=== PATIENT | female | born 1960 | race Caucasian/White ===

== ENCOUNTER 2022-03-15 00:29 | Day surgery (SDC) | payer OTHER, SELFPAY ==
[2022-03-08 12:37] VITALS: BMI 46.5
--- NOTE | 2022-03-12 16:38 | PM.HPGS ---
History of Present Illness History of Present Illness Consent: Risks, benefits, and alternatives have been discussed and questions answered. Patient agrees to proceed with procedure. Chief complaint: neoplasm screening Narrative: Neda Terrell is a 61 year old female referred for colon cancer screening. Her brother from colon cancer at age 32. Another brother has had polyps Review of Systems Review of Systems: All systems reviewed & are unremarkable except as noted in HPI and below PMFSH Social History Social History Smoking status: Never smoker Alcohol intake: current Alcohol use details: socially Substance use: current Substance use type: marijuana Living arrangements: with family Spiritual care concerns: No Meds Home Medications and Allergies Home Medications Medication Instructions Recorded Confirmed Type Vitamin D3 1 tab-cap PO DAILY 03/08/22 03/08/22 History paroxetine HCl 10 mg tablet 10 mg PO DAILY 03/08/22 03/08/22 History spironolactone 100 mg tablet 100 mg PO DAILY 03/08/22 03/08/22 History Allergies Allergy/AdvReac Type Severity Reaction Status Date / Time Penicillins Allergy Mild Unknown Verified 03/15/22 09:29 Exam Const: General: alert Nutritional Appearance: overweight Orientation/consciousness: patient oriented x3 Resp: Auscultation: clear to auscultation bilaterally Cardio: Rhythm: regular rhythm GI: GI Palp: Yes Soft to palpation and No Tenderness to palpation present (GI) Neuro: General: patient oriented x3 Assessment and Plan Assessment and plan (1) Colon cancer screening: Code(s): Z12.11 - Encounter for screening for malignant neoplasm of colon Status: Acute Assessment and Plan: Colonoscopy with possible biopsy or polypectomy or cautery or injection of substances.
[2022-03-15 09:29] VITALS: BP 152/89; PULSE 72; RESP 18; TEMP 36.2; O2SAT 98; BMI 44.2
[2022-03-15] MEDS: LACTATED RINGERS 1,000 ML 150 ML IV CONT (09:40)
--- NOTE | 2022-03-15 10:21 | P.PNAN_ITS ---
Anes - Initial Pre Proc Eval Procedure: Operation Date: 03/15/22 11:00 Proposed Procedures p Screening Colonoscopy - Colten Carrizales MD Date/Time: 03/15/22 10:21 Surgeon: Colten Carrizales MD Pre Op Diagnosis: neoplasm screening Patient Data Age: 61 Gender: F Height: 1.63 m Weight: 116.9 kg Last Vital Signs Temp 97.1 F L 03/15/22 09:29 Pulse 72 03/15/22 09:29 Resp 18 03/15/22 09:29 BP 152/89 H 03/15/22 09:29 Pulse Ox 98 03/15/22 09:29 O2 Del Method Room Air 03/15/22 09:29 Allergies Allergy/AdvReac Type Severity Reaction Status Date / Time Penicillins Allergy Mild Unknown Verified 03/15/22 09:29 Home Medications Medication Instructions Recorded Confirmed Type Vitamin D3 1 tab-cap PO DAILY 03/08/22 03/08/22 History paroxetine HCl 10 mg tablet 10 mg PO DAILY 03/08/22 03/08/22 History spironolactone 100 mg tablet 100 mg PO DAILY 03/08/22 03/08/22 History Patient hx anesthesia problems: none Family hx anesthesia problems: none Results Review: All pre-operative results and documents have been reviewed as part of the pre- operative evaluation. [facility] Social History Social History Smoking status: Never smoker Alcohol intake: current Alcohol use details: socially Substance use: current Substance use type: marijuana Living arrangements: with family Spiritual care concerns: No Anes - Eval Final PreProcedure Day of Procedure 03/15/22 10:21 Patient weight: morbidly obese Heart: regular rate and rhythm Lungs: clear to auscultation Airway: Mallampati scale class III Neurological: alert and oriented Last oral intake: >/= 8 hours ASA classification: III Emergent: no Anesthetic plan: proceed Anesthesia type and monitoring: general GIVS and standard monitoring Results Review: All pre-operative results and documents have been reviewed as part of the pre- operative evaluation. Informed Consent: The patient's anesthetic plan and its attendant risks and benefits were discussed with the patient/family/POA. Questions were solicited and answers provided to the satisfaction of the patient/family/POA.
[2022-03-15 11:10] VITALS: BP 114/63; PULSE 81; RESP 32; O2SAT 98
[2022-03-15 11:20] VITALS: BP 128/87; PULSE 67; RESP 32; O2SAT 95
[2022-03-15 11:30] VITALS: BP 133/82; PULSE 62; RESP 21; O2SAT 95
== END 2022-03-15 11:42 | disposition home or self-care (01) ==
PROVIDERS: PCP Internal Medicine; Visit Provider Internal Medicine Gastroenterology
PROC: 0DJD8ZZ Inspection of Lower Intestinal Tract, Via Natural or Artificial Opening Endoscopic (ICD-10-PCS; CPT 45378; principal; 2022-03-15 11:00)
DX: Z12.11 Encounter for screening for malignant neoplasm of colon (principal); D12.2 Benign neoplasm of ascending colon; D12.8 Benign neoplasm of rectum; D12.3 Benign neoplasm of transverse colon; Z80.0 Family history of malignant neoplasm of digestive organs; F12.90 Cannabis use, unspecified, uncomplicated; E66.01 Morbid (severe) obesity due to excess calories; Z68.41 Body mass index [BMI] 40.0-44.9, adult
CPT/HCPCS: 45381; 45385; 88305; J2704; J7120

== ENCOUNTER 2022-12-17 00:26 | Day surgery (SDC) | payer OTHER, SELFPAY ==
[2022-12-13 15:44] VITALS: BMI 42.3
--- NOTE | 2022-12-16 15:56 | PM.HPGS ---
History of Present Illness History of Present Illness Consent: Risks, benefits, and alternatives have been discussed and questions answered. Patient agrees to proceed with procedure. Chief complaint: hx colon polyps Narrative: Neda Terrell is a 62 year old female With a family history of colon cancer, her brother at age 33 develop colon cancer. She also had 2 very large polyps removed last year 1 in the rectum and 1 in the ascending colon, each about 3 cm in diameter. Because of piecemeal removal of large polyps she returns for surveillance to ensure complete removal of those polyps and/or treatment of any recurrent neoplastic tissue. Review of Systems Review of Systems: All systems reviewed & are unremarkable except as noted in HPI and below PMFSH Surgical History Surgical History History of hysterectomy History of laparoscopic adjustable gastric banding 2011 Social History Social History Smoking status: Never smoker Alcohol intake: current Alcohol use details: rarely Substance use: current Substance use type: does not use Living arrangements: with family Spiritual care concerns: No Meds Home Medications and Allergies Home Medications Medication Instructions Recorded Confirmed Type Vitamin D3 1 tab-cap PO DAILY 03/08/22 12/17/22 History paroxetine HCl 10 mg tablet 10 mg PO DAILY 03/08/22 12/17/22 History spironolactone 100 mg tablet 100 mg PO DAILY 03/08/22 12/17/22 History Allergies Allergy/AdvReac Type Severity Reaction Status Date / Time Penicillins Allergy Mild Unknown Verified 12/17/22 09:42 Exam Const: General: alert Orientation/consciousness: patient oriented x3 Resp: Auscultation: clear to auscultation bilaterally Cardio: Rhythm: regular rhythm GI: GI Palp: Yes Soft to palpation and No Tenderness to palpation present (GI) Neuro: General: patient oriented x3 Assessment and Plan Assessment and plan (1) Personal history of colonic polyps: Code(s): Z86.010 - Personal history of colonic polyps Status: Acute Assessment and Plan: Colonoscopy with possible biopsy or polypectomy or cautery or injection of substances.
--- NOTE | 2022-12-17 08:02 | WPDANESEPPF ---
Anes - Initial Pre Proc Eval Procedure: Operation Date: 12/17/22 11:00 Proposed Procedures p Colonoscopy - Colten Carrizales MD Date/Time: 12/17/22 08:02 Surgeon: Colten Carrizales MD Pre Op Diagnosis: hx colon polyps Patient Data Age: 62 Gender: F Height: 1.63 m Weight: 112 kg Allergies Allergy/AdvReac Type Severity Reaction Status Date / Time Penicillins Allergy Mild Unknown Verified 12/17/22 09:42 Home Medications Medication Instructions Recorded Confirmed Type Vitamin D3 1 tab-cap PO DAILY 03/08/22 12/17/22 History paroxetine HCl 10 mg tablet 10 mg PO DAILY 03/08/22 12/17/22 History spironolactone 100 mg tablet 100 mg PO DAILY 03/08/22 12/17/22 History Patient hx anesthesia problems: none Family hx anesthesia problems: none Results Review: All pre-operative results and documents have been reviewed as part of the pre-operative evaluation. [facility], [facility] Surgical History Surgical History (Updated 12/17/22 @ 08:03 by Christopher Jiang DO) History of hysterectomy History of laparoscopic adjustable gastric banding 2011 Social History Social History Smoking status: Never smoker Alcohol intake: current Alcohol use details: rarely Substance use: current Substance use type: does not use Living arrangements: with family Spiritual care concerns: No Anes - Eval Final PreProcedure Day of Procedure 12/17/22 08:02 Patient weight: morbidly obese Heart: regular rate and rhythm Lungs: clear to auscultation Airway: Mallampati scale class II Neurological: alert and oriented Last oral intake: >/= 8 hours ASA classification: III Emergent: no Anesthetic plan: proceed Anesthesia type and monitoring: general GIVS and standard monitoring Results Review: All pre-operative results and documents have been reviewed as part of the pre-operative evaluation. Informed Consent: The patient's anesthetic plan and its attendant risks and benefits were discussed with the patient/family/POA. Questions were solicited and answers provided to the satisfaction of the patient/family/POA.
[2022-12-17 09:43] VITALS: BP 138/92; PULSE 76; RESP 20; TEMP 35.8; O2SAT 98; BMI 42.8
[2022-12-17] MEDS: LACTATED RINGERS 1,000 ML 150 ML IV CONT (09:53)
[2022-12-17] MEDS: SIMETHICONE ORAL SUSPENSION 20 MG/0.3 ML 30 ML BOTTLE 0.6 ML IRRIGATION (10:59)
[2022-12-17 11:09] VITALS: BP 91/55; PULSE 68; RESP 20; O2SAT 95
[2022-12-17 11:19] VITALS: BP 133/84; PULSE 64; RESP 22; O2SAT 98
[2022-12-17 11:29] VITALS: BP 132/89; PULSE 65; RESP 19; O2SAT 98
== END 2022-12-17 11:47 | disposition home or self-care (01) ==
PROVIDERS: PCP Internal Medicine; Visit Provider Internal Medicine Gastroenterology
PROC: 0DJD8ZZ Inspection of Lower Intestinal Tract, Via Natural or Artificial Opening Endoscopic (ICD-10-PCS; CPT 45378; principal; 2022-12-17 11:00)
DX: Z09 Encounter for follow-up examination after completed treatment for conditions other than malignant neoplasm (principal); D12.8 Benign neoplasm of rectum; K64.8 Other hemorrhoids; Z98.84 Bariatric surgery status; E66.01 Morbid (severe) obesity due to excess calories; Z68.41 Body mass index [BMI] 40.0-44.9, adult; Z80.0 Family history of malignant neoplasm of digestive organs
CPT/HCPCS: 45385; 88305; J2704; J7120

== ENCOUNTER 2023-06-15 11:33 | Outpatient (CLI) | payer OTHER, SELFPAY ==
--- NOTE | ~2023-06-15 | MM_ITS ---
EXAMINATION: MM screening roberto BI w shar HISTORY: Screening mammogram TECHNIQUE: Craniocaudal and mediolateral oblique 3-D tomosynthesis images were obtained and synthetic 2-D images were generated. CAD analysis was submitted and interpreted. COMPARISON: 08/04/2018 bilateral screening mammogram BREAST PARENCHYMAL COMPOSITION: There are scattered areas of fibroglandular density. FINDINGS: There is no evidence of suspicious mass, calcification, or architectural distortion to sugg est malignancy in either breast. There has been no suspicious interval change. IMPRESSION: 1. No mammographic evidence of malignancy. 2. Recommend routine screening mammography in one year. BI-RADS Category 1: Negative Reviewed, dictated and finalized at location A.
== END 2023-06-15 11:34 ==
LOC: MICIMG 11:35
PROVIDERS: PCP Obstetrics & Gynecology Gynecology; Visit Provider Obstetrics & Gynecology Gynecology
DX: Z12.31 Encounter for screening mammogram for malignant neoplasm of breast (principal)
CPT/HCPCS: 77063; 77067

== ENCOUNTER 2025-02-19 17:37 | Emergency (ER) | payer OTHER, SELFPAY ==
[2025-02-19 17:48] VITALS: BP 134/85; PULSE 97; RESP 18; TEMP 36.7; O2SAT 97
[2025-02-19 18:04] LABS: EDUAAPPEAR Cloudy; EDUABILI Negative (Negative); EDUABLOOD Negative (Negative); EDUACOLOR1 Yellow; EDUAGLUCOSE Negative (Negative); EDUAKETONE Negative (Negative); EDUALEUKO Negative (Negative); EDUANITRATE Positive (Negative); EDUAPH 7.5; EDUAPROTEIN 1+ (Negative); EDUASPGRAVITY 1.020; EDUAUROBILI 0.2
--- NOTE | 2025-02-19 18:09 | ED.FEMALEGU ---
HPI - Female Genitourinary General Chief complaint: Urogenital-Female Stated complaint: Urinary Problem Time Seen by Provider: 02/19/25 18:00 Source: patient, RN notes reviewed and old records reviewed Mode of arrival: ambulatory Limitations: no limitations History of Present Illness HPI Narrative: 64 year old female who presents to [facility] care with complaints of chills, nausea, increased urgency foul-smelling odorous urine and burning with urination for the past 4 weeks. Patient reports she has had 4 incidents of urinary tract infections this year. Patient states she seen her biostatistics teacher 2 months ago and did receive prescriptions for estrogen vaginal cream and just started this week and also started probiotic. Patient reports that she has some episodes of stress incontinency like with coughing or sneezing. Patient reports that she has seen uroogy also in the past. MD elicited complaint: UTI Pertinent past history: recurrent UTIs Onset (ago): week(s) (4) Location of symptoms: urethra Severity: moderate Vaginal discharge: none Vaginal bleeding: none Urinary symptoms: Dysuria, Urgency, Frequency and Foul Smelling Urine Treatment prior to arrival: other (probiotic and started vaginal estrogen ccream) Related Data Home Medications ?Medication ?Instructions ?Recorded ?Confirmed ?Last Taken ?Type tirzepatide 7.5 mg/0.5 mL mg subcut 02/19/25 Unknown History subcutaneous pen injector (Mounjaro) Allergies Allergy/AdvReac Type Severity Reaction Status Date / Time Penicillins Allergy Mild Unknown Verified 02/19/25 17:49 Review of Systems Review of Systems: CONSTITUTIONAL: Denies fever,+ chills, or sweats. CARDIOVASCULAR: Denies chest pain, palpitations, or edema. RESPIRATORY: Denies cough or dyspnea. GASTROINTESTINAL: Denies abdominal pain,+ nausea, no vomiting, or diarrhea. GENITOURINARY: Reports dysuria, frequency, urgency.,foul smelling urine Denies flank pain or hematuria. SKIN: Denies rash or itching. MUSCULOSKELETAL: Denies back pain or myalgia. Denies CVA tenderness NEUROLOGIC: Denies headache All systems reviewed & are unremarkable except as noted in HPI and below PMFSH Past Medical History Medical History (Updated 02/20/25 @ 12:29 by Felicity Couch APRN) Personal history of colonic polyps Diabetes Urinary tract infection Surgical History Surgical History History of hysterectomy History of laparoscopic adjustable gastric banding 2011 Social History Social History Smoking status: Never smoker Alcohol intake: current Alcohol use details: rarely Substance use: current Substance use type: does not use Living arrangements: with family Spiritual care concerns: No Comments At time of signature, agree with nursing past medical, surgical, social and family history. There is no relevant family history pertinent to the presenting complaint Exam Narrative: GENERAL: Well-appearing, well-nourished, and in no acute distress. HEAD: Normocephalic, atraumatic. NECK: Supple.no lymphadenopathy CHEST: Clear to auscultation. No respiratory distress.no cough noted SAO2 97% on room air HEART: Regular rate and rhythm. No murmur heard. Normal peripheral pulses. ABDOMEN: Soft, nontender, nondistended, normal active bowel sounds. No CVA tenderness, reports frequency,urgency burning with urination with foul odorous urine EXTREMITIES: Normal range of motion. No edema. SKIN: Warm, dry, no rash. NEURO: No focal deficits. Alert and oriented x3. Course Course Emergency Course: Patient is aware of diagnosis, understands and agrees to treatment plan.? Anticipatory guidance given.? Patient agrees to follow-up as directed and is aware of reasons to seek care at the emergency department. Portions of this record may have been created with voice recognition software Level of Care: Express Care Visit Vital Signs Vital signs: Vital Signs Temperature 36.7 C 02/19/25 17:48 Pulse Rate 97 02/19/25 17:48 Respiratory Rate 18 02/19/25 17:48 Blood Pressure 134/85 02/19/25 17:48 Pulse Oximetry 97 02/19/25 17:48 Oxygen Delivery Room Air 02/19/25 17:48 Temperature 36.7 C 02/19/25 17:48 Pulse Rate 97 02/19/25 17:48 Respiratory Rate 18 02/19/25 17:48 Blood Pressure 134/85 02/19/25 17:48 Pulse Oximetry 97 02/19/25 17:48 Oxygen Delivery Room Air 02/19/25 17:48 reviewed MDM - Female Genitourinary MDM Narrative Medical decision making narrative: Exam findings and UA show no acute concerns or changes; patient is non-toxic appearing and is in no distress.? Patient is appropriate for outpatient treatment and follow-up. Differential Diagnosis Differential diagnosis: Likely urinary tract infection, cystitis and other (dysuria,) Medical Records Attestation: I reviewed the patient's medical records. Lab Data Attestation: I reviewed the patient's lab results. Lab results narrative: urine dip : glucose negative bilirubin negative, ketones negative, specific gravity 1.020, blood negative, pH 7.5, protein 1+ urobilinogen 0.2 protein1+, nitrite positive. leukocyte negativeyellow cloudy and foul odor Labs: Lab Results 02/19/25 Range/Units 18:01 POC Urine Color Yellow POC Urine Clarity Cloudy POC Urine pH 7.5 POC Ur Specif [place] 1.020 POC Urine Protein 1+ (Negative) POC Ur Glucose (UA) Negative (Negative) POC Urine Ketones Negative (Negative) POC Urine Blood Negative (Negative) POC Urine Nitrite Positive (Negative) POC Urine Bilirubin Negative (Negative) POC Urine Urobilinogen 0.2 POC U Leukocyte Esteras Negative (Negative) reviewed Critical Care Time Critical Care Time Critical Care Time: No Discharge Plan Discharge Clinical Impression: Urinary tract infection Qualifiers: Urinary tract infection type: site unspecified Hematuria presence: without hematuria Qualified Code(s): N39.0 - Urinary tract infection, site not specified Patient Disposition: Home Condition: Stable Instructions: Antibiotic Form, Urinary Tract Infection in Women (ED) Additional Instructions: Increase fluids especially cranberry juice and water Avoid caffeine and carbonated beverages Antibiotic as directed take all doses of antibiotics Tylenol/ibuprofen for pain or fever Follow-up with her primary care provider if further problems or concerns Recheck if you have fever over 101, nausea and vomiting. urine culture sent for further analysis If your symptoms persist, change or worsen significantly before you can contact your personal physician then please, without delay, go to the emergency department for further evaluation. Follow-up with PCP in 7-10 days or sooner if needed Follow up with PCP soon in regards to your blood pressure which is elevated above threshold for referral. Blood pressure above 120/80 may indicate pre-hypertension. 134/85 Patient Language: Montenegrin Prescriptions: New ciprofloxacin HCl 500 mg tablet 500 mg PO Q12H Qty: 14 0RF No Action Mounjaro 7.5 mg/0.5 mL pen injector SUBCUT Follow-up/Referrals: Camilo Hawkins MD [Primary Care Provider, Internal Medicine] Time of Disposition: 18:25 Quality [place] Coma Scale Eyes: Open Verbal: Oriented and Alert Motor: Follows Commands [place] Coma Total Score: 15
--- OUTSIDE RECORDS SUMMARY | 2025-02-20 04:13 | XMS_ITS | Clinical Summary ---
Author Organization [facility] Address [address] [place] [address] Care Team Providers Care Nozzle Worker Name Role Phone Unavailable Primary Care Provider Unavailabl e Source Comments [facility],non-owned Affiliates and Associated Physician Practices is amultiple site organization consisting of ambulatory clinics and hospital sitesin [place], [place], [place] and [place]. This disclosure is being madepursuant to the Care Everywhere program and may not contain all information available regarding this patient. 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 Gender Identity Not on file Sexual Orientation Not on file Plan of Treatment Health Maintenance Due Date Last Done Comments COLOGUARD (AGES 45-75) - COL ON CA SCREENING 1961 COLON MONITORING 1961 COLONOSCOPY - COLON CA SCREENING 1961 CT COLONOGRAPHY - COLON CA SCREENING 1961 Colorectal Cancer Screening 1961 FIT - COLON CA SCREENING 1961 FLEX SIG - COLON CA SCREENING 1961 LIPID TESTING 1961 MAMMOGRAM 1961 HIV SCREENING 1976 HEPATITIS C SCREENING 09/15/1979 DTAP/TDAP/TD VACCINES (1 - Tdap) 1980 Cervical Cancer Screening 1982 PAP SMEAR 1982 PAP with HPV 09/20/1991 PNEUMOCOCCAL VACCINE 50+ (1 of 1 - PCV) 09/20/2011 ZOSTER VACCINE (1 of 2) 09/20/2011 DEPRESSION SCREENING 04/04/2024 COVID-19 VACCINE (1 - 2024-2 6 season) 2024 INFLUENZA VACCINE (#1) 2024 Respiratory Syncytial Virus (RSV) Vaccine Pt: or over 60 yrs (1 - 1-dose 75+ series) 2036 HEPATITIS B VACCINE Aged Out No longe r eligible based on patient's age to complete this topic HIB VACCINE Aged Out No longer eligi ble based on patient's age to complete this topic HPV VACCINE Aged Out No longer eligi ble based on patient's age to complete this topic MENINGOCOCCAL (Group B) VACC INE SHARED DECISION-MAKING Aged Out No longer eligibl e based on patient's age to complete this topic MENINGOCOCCAL GROUPS A/C/Y/W VACCINE Aged Out No longer eligible b ased on patient's age to complete this topic Insurance [facility]
--- OUTSIDE RECORDS SUMMARY | 2025-02-20 04:14 | XMS_ITS | Clinical Summary ---
Author Organization [address] Address [address] [place] [id number] Care Team Providers Care Final Touch Up Painter Name Role Phone Camilo Hawkins MD Primary Care Provider [phone] Allergies Active Allergy Reactions Criticality Noted Date Comments Penicillin Other (See comments) Reaction: Allergic reaction, Medications ergocalciferol (VITAMIN D2) 50,000 unit capsule take 1 capsule by oral route every week 0 0 7 Active biotin 5 mg capsule 5 mg. 0 0 7 Active Additional Information Patient not taking.Reported on 12/30/2023 metFORMIN XR (GLUCOPHAGE XR) 500 mg 24 hr tablet TAKE 1 TABLET BY MOUTH ONCE DAILY WITH THE EVENING MEAL 4 Active PARoxetine (PAXIL) 10 mg tablet Take 1 tablet (10 mg total) by mouth daily 4 Active Active Problems No known active problems Immunizations Immunization Administration Dates Next Due Tdap 04/12/2014 Surgical History Surgery Date Site/Laterality Comments RADICAL HYSTERECTOMY 2006 Hysterectomy, radical LAPAROSCOPIC GASTRIC BANDING 2009 Lap band Family History Medical History Relation Name Comments Colon cancer Brother 2 Cancer, colon; Other Brother 2 Alive and well; Alzheimer's disease Father 2 Alzheime r's disease; Breast cancer Mother 2 Cancer, breast ; Diabetes Mother 2 Diabetes mellit us; Other Mother 2 Alive and well; Relation Name Status Comments Brother 1 Alive Brother 2 Father 1 (Age 68) Father 2 Mother 1 Alive Mother 2 Social History Tobacco Use Types Packs/Day Years Used Date Smoking Tobacco: Never Tobacco Cessation:Counseling Given: Not Answered Alcohol Use Standard Drinks/Week Comments Yes 0 (1 standard drink = 0.6 oz pur e alcohol) Personal Safety Answer Date Recorded Getting School Help Needed Not on file 11/27 Comments Unknown Sex and Gender Information Value Date Recorded Sex Assigned at Not on file 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 Gender Identity Not on file Sexual Orientation Not on file Last Filed Vital Signs Vital Sign Reading Time Taken Comments Blood Pressure 124/72 12/30/2023 10:06 AM CDT Pulse 79 04/20/2016 8:59 AM LEAD INSPECTOR Temperature - - Respiratory Rate - - Oxygen Saturation 95% 04/20/2016 8:59 AM LEAD INSPECTOR Inhaled Oxygen Concentration - - Weight 115.8 kg (255 lb 3.2 oz) 024 10:06 AM CDT Height 162.6 cm (5' 4) 12/30/2023 10:0 6 AM CDT Body Mass Index 43.8 12/30/2023 10:06 AM CDT Plan of Treatment Health Maintenance Due Date Last Done Comments Breast Cancer Screening-Mammogram 1961 Cervical Cancer Screening 1961 Colon Cancer Screening-Colonoscopy 1961 Depression Screening 1961 Hepatitis C Screening 1961 Hepatitis B Screening 09/20/1979 Regular Well Visit/Exam 18-64 09/20/1979 Zoster Vaccine (1 of 2) 09/20/2011 DTaP/Tdap/Td Vaccine (2 - Td or Tdap) 04/12/2024 04/12/2014 Covid-19 Vaccine (3 - 2024-2 6 season) 2024 04/20/2021, 03/30/2021 Influenza Vaccine (#1) 2024 Pneumococcal vaccine <65 Aged Out No longer eligible based on patient's age to complete this topic [place] [id number] Care Teams Final Touch Up Painter Relationship Specialty Start Date End Date Camilo Hawkins MD PCP - General Internal Medicine 11/29/23
--- OUTSIDE RECORDS SUMMARY | 2025-02-20 04:17 | XMS_ITS | Clinical Summary ---
Author Organization [facility] Address [address] [place] [address] Phone Care Team Providers Care Teller Manager Name Role Phone Camilo Hawkins MD Primary Care Provider [phone] Justin Hurd MD Unavailable Josh Lynn MD Unavailable [phone] Allergies Active Allergy Reactions Criticality Noted Date Comments Morphine Vomiting 06/08/2024 Penicillin G Other (see Comments) 03/12/2024 Reaction: Allergic reaction, Medications Pseudoephedrin e HCl (SUDAFED PO) Take 1 Tablet by mouth Daily as needed. Active ibuprofen (MOTRIN) 200 MG Tablet Take 600 mg by mouth every 8 hours as needed. Active Tirzepatide (Mounjaro) 7.5 MG/0.5ML Solution Auto-injectorI ndications:Typ e 2 diabetes mellitus without complication, without long-term current use of insulin 0.5 mL by Subcutaneous route once a week. 6 mL 5 Active metFORMIN (GLUCOPHAGE-XR ) 500 MG TABLET SR 24 HR Take 1 Tablet by mouth 2 times daily. This RX is for Metformin SR. 180 Tablet 1 5 025 Discontin ued(Med List Clean Up) Tirzepatide (Mounjaro) 7.5 MG/0.5ML Solution Auto-injector 0.5 mL by Subcutaneous route once a week. 6 mL 5 025 Discontin ued(Reord er) Active Problems Problem Noted Date Diagnosed Date Type 2 diabetes mellitus wit hout complication, without long-term current use of insulin 08/06/2024 Encounters Date Type Department Care Team Description 02/14/2025 11:00 AM [facility] Office Visit [facility] - [place] [address] [place] [address] Justin Hurd MD Type 2 diabetes mellitus without complication, without long-term current use of insulin (Primary Dx); Class 3 severe obesity due to excess calories with serious comorbidity and body mass index (BMI) of 40.0 to 44.9 in adult; Hyperparathyroidism Discharge Disposition: Discharged to home or Selfcare 02/14/2025 Travel from Last 3 Months Immunizations Immunization Administration Dates Next Due Covid-19, Mrna, Lnp-s, Pf, 30 Mcg/0.3 Ml Dose (P fizer) 04/20/2021,03/30/2021 TDAP Vaccine 04/12/2014 Family History Medical History Relation Name Comments Colon Cancer Brother Alzheimer's Disease Father Breast Cancer Maternal Grandfather Breast Cancer Mother Cancer Mother LUNG , THROAT Colon Cancer Mother Diabetes Mother Relation Name Status Comments Brother Father Maternal Grandfather Mother Alive Social History Tobacco Use Types Packs/Day Years Used Date Smoking Tobacco: Never Smokeless Tobacco: Never Tobacco Cessation:Counseling Given: Not Answered Alcohol Use Standard Drinks/Week Comments Yes 1 (1 standard drink = 0.6 oz pur e alcohol) EVERY 3 MONTHS Sexually Active Control Partners Comments Yes Comments No Sex and Gender Information Value Date Recorded Sex Assigned at Not on file Legal Sex Female 9:52 AM CDT Gender Identity Not on file Sexual Orientation Not on file Last Filed Vital Signs Vital Sign Reading Time Taken Comments Blood Pressure 124/78 02/14/2025 10:42 AM [facility] Pulse 78 02/14/2025 10:42 AM [facility] Temperature 36.6 C (97.8 F) 02/14/2025 10:42 AM [facility] Respiratory Rate 20 02/14/2025 10:42 AM [facility] Oxygen Saturation 93% 02/14/2025 10:42 AM [facility] Inhaled Oxygen Concentration - - Weight 106.1 kg (234 lb) 02/14/2025 10:42 AM [facility] Height 162.6 cm (5' 4) 07/02/2024 9:39 AM CDT Body Mass Index 40.17 07/02/2024 9:39 AM CDT Plan of Treatment Upcoming Encounters Date Type Department Care Team (Late st Contact Info) Description 08/14/2025 11:00 AM CDT Office Visit [facility] - Endocrinology - [place] [address] [place] [address] Justin Hurd MD [address] [address] Health Maintenance Due Date Last Done Comments Diabetes: Eye Exam 1961 Hepatitis C Virus (HCV) Screening 1961 Mammogram 1961 Pneumococcal Immunization (5 0+ years) (1 of 2 - PCV) 1980 Cologuard 2006 Colonoscopy 2006 Colorectal Cancer Screening 2006 Immunochemical Fecal Occult Blood 2006 Respiratory Syncytial Virus (RSV) Immunization (Adult) (1 - Risk 50-74 years 1-dose series) 09/20/2011 Zoster Immunization (1 of 2) 09/20/2011 Td Immunization Every 10 Yea rs (Adults With 1 Tdap) 04/12/2024 04/12/2014 Influenza Immunization (#1) 2024 SARS-COV-2 Immunization ( - season) 2024 04/20/2021, 03/30/2021 Diabetes: Foot Exam 08/06/2025 08/06/2024 Diabetes: Nephropathy Screening 08/06/2025 08/06/2024, 05/25/2024, 03/15/2024 Diabetes: Hemoglobin A1c 08/14/2025 025, 08/06/2024 TdaP Immunization Discontinued 04/12/2014 Hepatitis B Immunization Aged Out No longer eligible based on patient's age to complete this topic Human Papillomavirus (HPV) Immunization Aged Out No longer eligible based on patient's age to complete this topic Meningococcal Immunization (ACWY) Aged Out No longer eligible based on patient's age to complete this topic Rotavirus Immunization Aged Out No lo nger eligible based on patient's age to complete this topic Procedures Procedure Name Priority Date/Time Associated Diagnosis Comments POCT GLYCOSYLATED HEMOGLOBIN Routine 02/14/2025 11:11 AM [facility] Type 2 diabetes mellitus without complication, without long-term current use of insulin CMP (COMPREHENSIVE METABOLIC PANEL) Routine 08/06/2024 11:53 AM CDT Hyperparathyroidism (HCC) Hypercalcemia from Last 3 Months or Most Recently Relevant to Health Maintenance Results * POCT GLYCOSYLATED HEMOGLOBIN (02/14/2025 11:11 AM [facility]) HGB-A1C 5.8 4 - 6 % Blood 02/14/2025 11:1 1 AM [facility] us Justin Hurd MD POINT OF CARE TESTING (MANUAL) F inal Result * CMP (COMPREHENSIVE METABOLIC PANEL) (08/06/2024 11:53 AM CDT) SODIUM 140 136 - 145 mmol/L 08/06/2024 3:09 PM CDT [facility] POTASSIUM 4.3 3.5 - 5.1 mmol/L 08/06/2024 3:09 PM CDT [facility] CHLORIDE 105 98 - 107 mmol/L 08/06/2024 3:09 PM CDT [facility] CO2, VENOUS 27 22 - 30 mmol/L 08/06/2024 3:09 PM CDT [facility] ANION GAP 12.3 <18.0 mmol/L 08/06/2024 3:09 PM CDT [facility] GLUCOSE 90 70 - 99 mg/dL 08/06/2024 3:09 PM CDT [facility] BUN 12 10 - 20 mg/dL 08/06/2024 3:09 PM CDT [facility] CREATININE, BLOOD 0.74 0.60 - 1.00 mg/dL 08/06/2024 3:09 PM CDT [facility] BUN/CREATININE RATIO 16 12 - 20 ratio 08/06/2024 3:09 PM CDT [facility] TOTAL PROTEIN 7.3 6.0 - 8.0 g/dL 08/06/2024 3:09 PM CDT [facility] ALBUMIN 3.9 3.5 - 5.0 g/dL 08/06/2024 3:09 PM CDT [facility] A/G RATIO 1.1 1.0 - 2.2 08/06/2024 3:09 PM CDT [facility] CALCIUM 9.2 8.7 - 10.5 mg/dL 08/06/2024 3:09 PM CDT [facility] T BILI 0.3 0.2 - 1.2 mg/dL 08/06/2024 3:09 PM CDT [facility] SGOT (AST) 16 <43 U/L 08/06/2024 3:09 PM CDT [facility] SGPT (ALT) 16 <56 U/L 08/06/2024 3:09 PM CDT [facility] ALKALINE PHOSPHATASE 99 40 - 150 U/L 08/06/2024 3:09 PM CDT [facility] IS THE PATIENT REQUIRED TO BE FASTING? No 08/06/2024 3:09 PM CDT [facility] GFR, ESTIMATED >60 >=60 08/06/2024 3:09 PM CDT [facility] Comment: Creatinine Clearance is the preferred criteria for selecting drug dose adjustments in renally impaired patients. The GFR is provided as additional pertinent clinical information. GFR is reported in mL/min/1.73 sq m. Calculation based on the Chronic Kidney Disease Epidemiology Collaboration (CKD- EPI) equation refit without adjustment for race. GFR, EST. >60 >=60 025 3:09 PM CDT [facility] GFR, EST. NONAFRICAN >60 >=60 08/06/2024 3:09 PM CDT [facility] Blood Venipuncture / Unknown 08/06/2024 11:53 AM CDT 08/06/2024 2:40 PM CDT us Justin Hurd MD CHEMISTRY ORDERABLES Final Resul t [facility] [address] [place] [address] from Last 3 Months or Most Recently Relevant to Health Maintenance Insurance [facility] Care Teams Teller Manager Relationship Specialty Start Date End Date Camilo Hawkins MD [address] [place] [address] PCP - General Internal Medicine 01/11/24 Justin Hurd MD [address] [phone] Consulting Physician Endocrinology 03/08/24 Josh Lynn MD [address] [phone] Consulting Physician General Surgery 06/08/24
== END 2025-02-19 18:34 | disposition home or self-care (01) ==
PROVIDERS: Emergency Provider Registered Nurse; PCP Internal Medicine
DX: N39.0 Urinary tract infection, site not specified (principal); E11.9 Type 2 diabetes mellitus without complications; Z79.85 Long-term (current) use of injectable non-insulin antidiabetic drugs
CPT/HCPCS: 81003; 99213; G0463